=== PATIENT | male | born 1970 | race Two or more races ===

== ENCOUNTER 2016-12-05 20:55 | Emergency (ER) | payer OTHER ==
[~2016-12-05] VITALS: Ht 177.8 cm; Wt 104.3 kg
[2016-12-05 21:23] VITALS: BP 132/91
[2016-12-05] MEDS ORDERED: LEVOFLOXACIN500 MG ORAL (22:11)
--- NOTE | 2016-12-05 22:35 | Emergency Room Report ---
History of Present Illness General Chief Complaint: Lower Extremity Injury Source: Patient Present Illness HPI 46 YO M with puncture wound to base of left little toe after accidentally stepping on "dirty hollie nail" on a roof. Nail punctured thru sneaker, sock. Did not break off. Patient well-irrigated wound. Tetanus was updated 7 years ago. Pain became worse after irrigation so came to ED. Allergies: Coded Allergies: ASPIRIN (Verified Allergy, Unknown, 12/05/16) D/T GERD Patient History Past Medical History: none Past Surgical History: none Pertinent Family History: none Social History: Denies: alcohol use, drug use, smoking Immunizations: UTD Reviewed Nursing Documentation: PMH: Agreed, PSxH: Agreed Nursing Documentation-PMH Past Medical History: No History, Except For Hx Gastrointestinal Problems: Yes - GERD Review of Systems All Other Systems: negative except mentioned in HPI Physical Exam Vital Signs Date Time Temp Pulse Resp B/P Pulse Ox O2 Delivery O2 Flow Rate FiO2 12/05/16 21:12 97.2 102 18 132/91 96 Room Air Sp02 EP Interpretation: reviewed, normal General Appearance: normal inspection, well appearing, no apparent distress, alert Head: atraumatic ENT: normal ENT inspection, hearing grossly normal, normal voice Neck: normal inspection, full range of motion, supple, no bony tend Respiratory: normal inspection, lungs clear, normal breath sounds, no respiratory distress, no retraction, no wheezing Cardiovascular #1: regular rate, rhythm, no edema Gastrointestinal: normal inspection, normal bowel sounds, non tender, soft, no guarding, no hernia Genitourinary: no CVA tenderness Musculoskeletal: normal inspection, back normal, normal range of motion, Annemarie' s Sign negative Neurologic: normal inspection, alert, responsive, speech normal Psychiatric: normal inspection, judgement/insight normal, mood/affect normal Skin: normal inspection, normal color, no rash, other - small abrasion to plantar aspect of left foot at base of little toe. no active bleeding. no FB. No ttp at site. No sign of infection Medical Decision Making Diagnostic Impression: Primary Impression: Puncture wound ER Course xray negative for FB, fx of bone Likely abrasion Will cover with PPx Levoflox given puncture of sneaker DC home Last Vital Signs Date Time Temp Pulse Resp B/P Pulse Ox O2 Delivery O2 Flow Rate FiO2 12/05/16 21:23 97.2 82 18 132/91 96 Room Air Status: improved Disposition: HOME, SELF-CARE Condition: Improved Scripts Levofloxacin (LEVOFLOXACIN*) 500 Mg Tablet 500 MG ORAL BID for 3 Days, #6 TAB Prov: SEAN FRAGA M.D. 12/05/16 Referrals: [facility] (PCP) Patient Instructions: Puncture Wound, [id number] Additional Instructions: - Take ALL antibiotics until finished - Place foot in ice/water bath 3x a day for pain/swelling - Take tylenol as needed for pain SEAN FRAGA M.D. Dec 05, 2016 22:35
[2016-12-05 23:14] VITALS: BP 132/91
[2016-12-05] MEDS ORDERED: TYLENOL325 MG ORAL (23:20)
--- NOTE | 2016-12-06 11:06 | Diagnostic Imaging Report ---
Indication: PAIN Technique: 3 views left foot Comparison: none Findings: There is hallux valgus and bunion formation. No acute fractures. No dislocations. Joint spaces are preserved. Impression: No acute process. Findings as noted
== END 2016-12-05 23:17 | disposition home or self-care (01) ==
LOC: EMR 21:39
DX: S91.135A Puncture wound without foreign body of left lesser toe(s) without damage to nail, initial encounter (principal); W22.8XXA Striking against or struck by other objects, initial encounter; Y92.9 Unspecified place or not applicable; K21.9 Gastro-esophageal reflux disease without esophagitis; Z88.6 Allergy status to analgesic agent; M20.12 Hallux valgus (acquired), left foot; M21.612 Bunion of left foot
CPT/HCPCS: 99283

== ENCOUNTER 2017-01-11 10:46 | Emergency (ER) | payer OTHER ==
[~2017-01-11] VITALS: Ht 177.8 cm; Wt 105.2 kg
[~2017-01-11 10:46] MED LIST: LEVOFLOXACIN500 MG ORAL; TYLENOL325 MG ORAL
[2017-01-11] MEDS ORDERED: OMEPRAZOLE20 M2 ORAL (11:00)
[2017-01-11] MEDS ORDERED: AZITHROMYCIN250 MG ORAL (11:11)
[2017-01-11] MEDS ORDERED: PROMETH-CODEIN 65 ML PO (11:11)
--- NOTE | 2017-01-11 11:13 | Emergency Room Report ---
History of Present Illness General Chief Complaint: Upper Respiratory Illness Source: Patient, Medical Record Present Illness HPI Patient presents with complaints of sore throat and cough ongoing for the past 7 days Denies any chest pain denies any back or flank pain Patient a questionable fevers denies any neck pain or photophobia Denies any dysuria frequency Denies any recent travel Pain is 5/10 worse with swallowing Allergies: Coded Allergies: ASPIRIN (Verified Allergy, Unknown, 12/05/16) D/T GERD Patient History Past Medical History: see triage record Pertinent Family History: none Reviewed Nursing Documentation: PMH: Agreed, PSxH: Agreed Nursing Documentation-PMH Hx Gastrointestinal Problems: Yes - GERD Review of Systems All Other Systems: negative except mentioned in HPI Physical Exam Vital Signs Date Time Temp Pulse Resp B/P Pulse Ox O2 Delivery O2 Flow Rate FiO2 01/11/17 10:55 98.4 96 16 114/78 99 Sp02 EP Interpretation: reviewed, normal General Appearance: well appearing, no apparent distress Head: normocephalic, atraumatic Eyes: bilateral eye EOMI, bilateral eye PERRL ENT: hearing grossly normal, TMs + canals normal, uvula midline, pharyngeal erythema Neck: full range of motion, supple, no meningismus, no bony tend Respiratory: lungs clear, normal breath sounds, no rhonchi, no respiratory distress, no retraction, no accessory muscle use Cardiovascular #1: normal peripheral pulses, regular rate, rhythm, no edema, no gallop, no JVD, no murmur Gastrointestinal: normal bowel sounds, non tender, soft, no mass, no organomegaly, non-distended, no guarding, no hernia, no pulsatile mass, no rebound Musculoskeletal: normal inspection Neurologic: oriented x3, responsive, weather strip mechanic III-XII nml as tested, motor strength/ tone normal, sensory intact Psychiatric: mood/affect normal Skin: normal color, no rash, warm/dry, palpation normal Lymphatic: normal inspection, no adenopathy Medical Decision Making Diagnostic Impression: Primary Impression: pharyngitis Additional Impression: Upper respiratory infection ER Course Given the patient's oral examination appears to have findings in line with pharyngitis placed on oral antibiotics And is stable for close initial conservative outpatient trial Last Vital Signs Date Time Temp Pulse Resp B/P Pulse Ox O2 Delivery O2 Flow Rate FiO2 01/11/17 11:10 96 16 4/1/17 10:55 98.4 114/78 99 Status: unchanged Disposition: HOME, SELF-CARE Condition: Stable Scripts Promethazine HCl/Codeine (Prometh-Codein 6.25-10 mg/5 ml) 5 Ml Syrup 5 ML PO Q8HR for 5 Days, ML Prov: HIRA ALEXANDER D.O. 01/11/17 Azithromycin* (ZITHROMAX*) 250 Mg Tablet 250 MG ORAL DAILY, #6 TAB 0 Refills Take two tablets by mouth today, then take one tablet by mouth daily for four days Prov: HIRA ALEXANDER D.O. 01/11/17 Referrals: (Family) [facility] (PCP) Patient Instructions: Upper Respiratory Infection, Adult, Pharyngitis, Easy-to- Read Additional Instructions: Patient is provided with the discharge instructions notified to follow up with primary doctor in the next 2-3 days otherwise return to the er with any worsening symptoms. Please note that this report is being documented using DRAGON technology. This can lead to erroneous entry secondary to incorrect interpretation by the dictating instrument. HIRA ALEXANDER D.O. Jan 11, 2017 11:13
[2017-01-11 11:20] VITALS: BP 114/78
== END 2017-01-11 11:20 | disposition home or self-care (01) ==
LOC: EMR 11:04
DX: J02.9 Acute pharyngitis, unspecified (principal); K21.9 Gastro-esophageal reflux disease without esophagitis; Z88.6 Allergy status to analgesic agent
CPT/HCPCS: 99284

== ENCOUNTER 2019-09-04 23:09 | Emergency (ER) | payer OTHER ==
[~2019-09-04] VITALS: Ht 177.8 cm; Wt 68.0 kg
[~2019-09-04 23:09] MED LIST changes: +AZITHROMYCIN250 MG ORAL; +OMEPRAZOLE20 M2 ORAL; +PROMETH-CODEIN 65 ML PO
--- NOTE | 2019-09-04 23:55 | Emergency Room Report ---
History of Present Illness General Chief Complaint: Lower Extremity Injury Source: Patient, Medical Record Present Illness HPI Is a 48-year-old male with no significant past medical history. He presents with chief made of right ankle pain. Onset was this afternoon. He said he was walking down the stairs and missed a step and rolled his ankle. He complained of swelling and pain to the lateral aspect of the right ankle. Worse with walking. Better with rest. Pain is 7 out of 10. No other trauma. Did not fall or hurt himself. Allergies: Coded Allergies: ASPIRIN (Verified Allergy, Unknown, 12/05/16) D/T GERD Patient History Past Medical History: see triage record, old chart reviewed, GERD Past Surgical History: other Pertinent Family History: none Social History: Denies: smoking Immunizations: other Reviewed Nursing Documentation: PMH: Agreed; PSxH: Agreed Nursing Documentation-PMH Past Medical History: No History, Except For Hx Gastrointestinal Problems: Yes - GERD Review of Systems Eye: Denies: eye pain, blurred vision ENT: Denies: ear pain, nose congestion, throat swelling Respiratory: Denies: cough, shortness of breath Cardiovascular: Denies: chest pain, palpitations Gastrointestinal: Denies: abdominal pain, diarrhea, nausea, vomiting Musculoskeletal: Reports: joint pain, joint swelling; Denies: back pain Skin: Denies: rash Neurological: Denies: headache, numbness Endocrine: Denies: increased thirst, increased urine Hematologic/Lymphatic: Denies: easy bruising All Other Systems: negative except mentioned in HPI Physical Exam Vital Signs Date Time Temp Pulse Resp B/P (MAP) Pulse Ox O2 Delivery O2 Flow Rate FiO2 09/04/19 23:14 98.1 98 16 110/73 (85) 98 Room Air Vitals normal Sp02 EP Interpretation: reviewed, normal General Appearance: well appearing, no apparent distress, alert Head: normocephalic, atraumatic Eyes: bilateral eye PERRL, bilateral eye EOMI ENT: hearing grossly normal, normal pharynx Neck: full range of motion, supple, no meningismus Respiratory: chest non-tender, lungs clear, normal breath sounds Cardiovascular #1: regular rate, rhythm, no murmur Gastrointestinal: normal bowel sounds, non tender, no mass, no organomegaly, no bruit, non-distended Musculoskeletal: back normal, normal range of motion, gait/station normal, other - Right ankle: There is edema and tenderness to the lateral malleolus. Ankle is otherwise stable. Pulse normal. Sensation normal. Psychiatric: mood/affect normal Procedures Splinting Splinting : Consent: Verbal Location: rt ankle Pre-Made Type: aircast Pre-Proc Neuro Vasc Exam: normal Post-Proc Neuro Vasc Exam: normal Patient Tolerated: Well Complications: None Medical Decision Making Diagnostic Impression: Primary Impression: Right ankle sprain Qualified Codes: S93.491A - Sprain of other ligament of right ankle, initial encounter ER Course Presents with an ankle sprain. No fracture dislocation. Will discharge home. Other X-Ray Diagnostic Results Other X-Ray Diagnostic Results : X-Ray ordered: Right ankle x-rays # of Views/Limited Vs Complete: 3 View Indication: Pain EP Interpretation: Yes Interpretation: no dislocation, no fractures, other - STS Impression: Other - STS. no frx Electronically Signed by: Kelvin Jeter MD Last Vital Signs Date Time Temp Pulse Resp B/P (MAP) Pulse Ox O2 Delivery O2 Flow Rate FiO2 09/04/19 23:14 98.1 98 16 110/73 (85) 98 Room Air Status: improved Disposition: HOME, SELF-CARE Condition: Stable Scripts Tramadol Hcl* (ULTRAM*) 50 Mg Tablet 50 MG ORAL Q6H PRN for For Pain, #15 TAB 0 Refills Prov: Kelvin Jeter MD 09/05/19 Patient Instructions: Ankle Sprain Additional Instructions: Elevate leg. Ice pack to the area. Use crutches as needed. Follow-up with your doctor in 7 days. Return if worse. Kelvin Jeter MD Sep 04, 2019 23:55
[2019-09-05] MEDS ORDERED: TRAMADOL HCL50 MG ORAL (00:01)
[2019-09-05 00:15] VITALS: BP 110/73
--- NOTE | 2019-09-05 01:56 | Diagnostic Imaging Report ---
EXAM: XR Right Ankle Complete, 3 or More Views CLINICAL HISTORY: TRAUMA TECHNIQUE: Frontal, lateral and oblique views of the right ankle. COMPARISON: No relevant prior studies available. FINDINGS: Bones/joints: Unremarkable. No acute fracture. No dislocation. Soft tissues: Unremarkable. IMPRESSION: Normal right ankle x-rays.
== END 2019-09-05 00:15 | disposition home or self-care (01) ==
LOC: EMR 23:32
DX: S93.491A Sprain of other ligament of right ankle, initial encounter (principal); W19.XXXA Unspecified fall, initial encounter; Y92.9 Unspecified place or not applicable; Z88.6 Allergy status to analgesic agent; K21.9 Gastro-esophageal reflux disease without esophagitis
CPT/HCPCS: 29515; 73610; Z7502; 99283

== ENCOUNTER 2020-10-07 02:25 | Emergency (ER) | payer OTHER ==
[~2020-10-07] VITALS: Ht 177.8 cm; Wt 117.9 kg
[~2020-10-07 02:25] MED LIST changes: +TRAMADOL HCL50 MG ORAL
[2020-10-07 02:43] VITALS: BP 109/52
--- NOTE | 2020-10-07 02:48 | Emergency Room Report ---
History of Present Illness General Chief Complaint: Abdominal Pain Source: Patient Present Illness HPI This is a 50-year-old male with a history of gastritis for which he take omeprazole. He presents with chief complaint abdominal pain and diarrhea. Onset for 10 days now. Initially diarrhea was bloody but that lasted for a day. He took some Pepto-Bismol and his diarrhea resolved. It started back up again the last few days. Pain is intermittent nature. Usually periumbilical. Pain was sharp. It woke him up around midnight. Now is better. He also has some congestion runny nose. He has appointment for Covid testing at [facility] later on today. He denies any fever chills. Denies any cough. Denies any trauma. No recent antibiotics or travel. Allergies: Coded Allergies: ASPIRIN (Verified Allergy, Unknown, 12/05/16) D/T GERD COVID-19 Screening Contact w/high risk pt: No Experienced COVID-19 symptoms?: Yes COVID-19 Testing performed [employer] NEW CARS: No Patient History Past Medical History: see triage record, old chart reviewed Past Surgical History: none Pertinent Family History: none Social History: Denies: smoking Immunizations: other Reviewed Nursing Documentation: PMH: Agreed; PSxH: Agreed Nursing Documentation-PMH Hx Gastrointestinal Problems: Yes - GERD , esophagitis Review of Systems Eye: Denies: eye pain, blurred vision ENT: Denies: ear pain, nose congestion, throat swelling Respiratory: Denies: cough, shortness of breath Cardiovascular: Denies: chest pain, palpitations Gastrointestinal: Reports: abdominal pain, diarrhea; Denies: nausea, vomiting Musculoskeletal: Denies: back pain, joint pain Skin: Denies: rash Neurological: Denies: headache, numbness Endocrine: Denies: increased thirst, increased urine Hematologic/Lymphatic: Denies: easy bruising All Other Systems: negative except mentioned in HPI Physical Exam Vital Signs Date Time Temp Pulse Resp B/P (MAP) Pulse Ox O2 Delivery O2 Flow Rate FiO2 10/07/20 02:30 100.8 97 16 107/54 (71) 92 Room Air Vitals with low-grade fever. Repeat pulse ox 96% on room air. Sp02 EP Interpretation: reviewed, normal General Appearance: well appearing, no apparent distress, alert, obese Head: normocephalic, atraumatic Eyes: bilateral eye PERRL, bilateral eye EOMI ENT: hearing grossly normal, normal pharynx Neck: full range of motion, supple, no meningismus Respiratory: chest non-tender, lungs clear, normal breath sounds Cardiovascular #1: regular rate, rhythm, no murmur Gastrointestinal: normal bowel sounds, non tender, no mass, no organomegaly, no bruit, non-distended Musculoskeletal: back normal, normal range of motion, gait/station normal Psychiatric: mood/affect normal Medical Decision Making Diagnostic Impression: Primary Impression: Abdominal pain Qualified Codes: R10.84 - Generalized abdominal pain Additional Impressions: Diarrhea Qualified Codes: R19.7 - Diarrhea, unspecified Suspected 2019 novel coronavirus infection ER Course This patient presents with abdominal pain and diarrhea. He also has some congestion. I suspect this is from Covid. CT scan showed subtle groundglass opacity in the lungs. He has no cough or congestion. He has no respiratory distress. I will go ahead and put him on antibiotics however. Will discharge home. CT/MRI/US Diagnostic Results CT/MRI/US Diagnostic Results : Imaging Test Ordered: CT abdomen pelvis Impression Read by radiologist. Lungs showed subtle groundglass opacity. Abdominal findings unremarkable. Last Vital Signs Date Time Temp Pulse Resp B/P (MAP) Pulse Ox O2 Delivery O2 Flow Rate FiO2 10/07/20 02:30 100.8 97 16 107/54 (71) 92 Room Air Status: improved Disposition: HOME, SELF-CARE Condition: Stable Scripts Azithromycin* (ZITHROMAX*) 250 Mg Tablet 250 MG ORAL DAILY, #6 TAB 0 Refills Take two tables once daily for 1 day, then one tablet once daily for 4 days. Prov: Kelvin Jeter MD 10/07/20 Referrals: [facility] (PCP) Patient Instructions: Abdominal Pain, Adult Additional Instructions: Follow up with your doctor in 7 days. Return if symptoms worsen. Kelvin Jeter MD Oct 07, 2020 02:48
[2020-10-07 03:15] LABS: APPEARANCE,URINE SLIGHTLY CLOUDY; BILIRUBIN, URINE NEGATIVE (NEGATIVE); GLUCOSE, URINE (UA) NEGATIVE (NEGATIVE); KETONES,URINE 2+ (NEGATIVE); LEUKOCYTE ESTERASE ,URINE NEGATIVE (NEGATIVE); NITRITE,URINE NEGATIVE (NEGATIVE); PH,URINE 6 (4.5-8.0); PROTEIN,URINE 2+ (NEGATIVE); UROBILINOGEN,URINE NORMAL MG/DL (0.0-1.0)
[2020-10-07 03:16] LABS: BASOPHILS % (AUTO) 0.3 % (0.0-2.0); EOSINOPHILS % (AUTO) 0.1 % (0.0-3.0); HEMATOCRIT 40.3 % (42.0-52.0); HEMOGLOBIN 14.6 G/DL (14.2-18.0); LYMPHOCYTES % (AUTO) 14.9 % (20.0-45.0); MEAN CORPUSCULAR VOLUME 80 FL (80-99); MONOCYTES % (AUTO) 3.4 % (1.0-10.0); NEUTROPHILS % (AUTO) 81.3 % (45.0-75.0); PLATELET COUNT 119 K/UL (150-450); RED BLOOD COUNT 5.01 M/UL (4.70-6.10); RED CELL DISTRIBUTION WIDTH 14.6 % (11.6-14.8); WHITE BLOOD COUNT 4.5 K/UL (4.8-10.8)
[2020-10-07 03:17] LABS: COLOR,URINE YELLOW
[2020-10-07 03:26] LABS: CALCIUM 7.6 MG/DL (8.5-10.1); CREATININE 1.3 MG/DL (0.55-1.30)
--- NOTE | 2020-10-07 03:27 | Diagnostic Imaging Report ---
EXAM: CT Abdomen and Pelvis Without Intravenous Contrast CLINICAL HISTORY: ABD PAIN TECHNIQUE: Axial computed tomography images of the abdomen and pelvis without intravenous contrast. CTDI is 13.80 mGy and DLP is 758.50 mGy-cm. One or more of the following dose reduction techniques were used: automated exposure control, adjustment of the mA and/or kV according to patient size, use of iterative reconstruction technique. COMPARISON: No relevant prior studies available. FINDINGS: Lung bases: Subtle ground-glass opacities are identified in the bilateral lower lobes, partially imaged. ABDOMEN: Liver: Unremarkable. Gallbladder and bile ducts: Unremarkable. No calcified stones. No ductal dilation. Pancreas: Unremarkable. No ductal dilation. Spleen: Unremarkable. No splenomegaly. Adrenals: Unremarkable. No mass. Kidneys and ureters: Unremarkable. No obstructing stones. No hydronephrosis. Stomach and bowel: Unremarkable. No obstruction. No mucosal thickening. PELVIS: Appendix: No findings to suggest acute appendicitis. Bladder: Unremarkable. No stones. Reproductive: Unremarkable as visualized. ABDOMEN and PELVIS: Intraperitoneal space: Unremarkable. No free air. No significant fluid collection. Bones/joints: No acute fracture. No dislocation. Soft tissues: Unremarkable. Vasculature: Unremarkable. No abdominal aortic aneurysm. Lymph nodes: Unremarkable. No enlarged lymph nodes. IMPRESSION: Subtle ground-glass opacities are identified in the bilateral lower lobes, partially imaged. These could represent atypical pneumonia in the appropriate clinical context. Otherwise the abdomen and pelvis on noncontrast CT is unremarkable.
[2020-10-07 03:30] LABS: ALBUMIN 3.2 G/DL (3.4-5.0); ALBUMIN/GLOBULIN RATIO 0.8 (1.0-2.7); BILIRUBIN,TOTAL 0.8 MG/DL (0.2-1.0)
[2020-10-07] MEDS ORDERED: ZITHROMAX250 MG ORAL (03:53)
[2020-10-07 04:00] VITALS: BP 108/82
== END 2020-10-07 04:04 | disposition home or self-care (01) ==
LOC: EMR 02:33
DX: R10.84 Generalized abdominal pain (principal); R19.7 Diarrhea, unspecified; R09.81 Nasal congestion; R91.8 Other nonspecific abnormal finding of lung field; Z88.6 Allergy status to analgesic agent
CPT/HCPCS: 36415; 74176; 80053; 81003; 83690; 85025; 96360; Z7502; 99284